=== PATIENT | female | born 1985 | race Caucasian/White ===

== ENCOUNTER 2016-08-24 14:12 | Emergency (ER) | payer BC ==
[~2016-08-24] VITALS: Ht 172.7 cm; Wt 63.0 kg
[~2016-08-24 14:12] MED LIST: BUPR75TA3 PO; CIME300L4 PO; PRED5TAB48 PO; RANI150T12 PO
[2016-08-24 15:08] VITALS: BP 120/61
== END 2016-08-24 15:10 | disposition home or self-care (01) ==
LOC: ER 14:14
DX: M54.6 Pain in thoracic spine (principal); K21.9 Gastro-esophageal reflux disease without esophagitis; F17.200 Nicotine dependence, unspecified, uncomplicated; Z87.440 Personal history of urinary (tract) infections
CPT/HCPCS: A4606; Z7610

== ENCOUNTER 2017-07-06 12:14 | Emergency (ER) | payer BC, OTHER ==
[~2017-07-06] VITALS: Ht 172.7 cm; Wt 62.1 kg
--- NOTE | 2017-07-06 12:22 | NUR ---
PATIENT TO ED DT BURNING SENSATION AND PINKISH COLORED URINE SINCE YESTERDAY. PER PATIENT SHE WAS ON MACROBID AND FINISHED WHOLE COURSE HOWEVER SHE DIDNT SEE ANY IMPROVEMENT, PATIENT IS AFEBRILE. SKIN IS WARM TO TOUCH AND NON DIAPAHORETIC. VSS. PENDING MD HUFF
--- NOTE | 2017-07-06 12:27 | NUR ---
GRACIELA RILEY AT BEDSIDE
[2017-07-06 12:35] LABS: APPEARANCE,URINE CLEAR (CLEAR); BILIRUBIN,URINE NEGATIVE (NEGATIVE); BLOOD, URINE NEGATIVE Ery/uL (NEGATIVE); COLOR,URINE YELLOW (YELLOW); KETONES,URINE NEGATIVE (NEGATIVE); LEUKOCYTE ESTERASE ,URINE NEGATIVE (NEGATIVE); NITRITE, URINE NEGATIVE (NEGATIVE); PROTEIN,URINE NEGATIVE (NEGATIVE); UGLUCOSE NEGATIVE (NEGATIVE); UROBILINOGEN,URINE 0.2 EU/dL (0.2)
[2017-07-06 13:18] VITALS: BP 102/60
--- NOTE | 2017-07-06 13:18 | NUR ---
Patient discharged to home in stable condition. Written and verbal after care instructions given. Patient verbalizes understanding of instruction.
== END 2017-07-06 13:23 | disposition home or self-care (01) ==
LOC: ER 12:18
DX: K59.00 Constipation, unspecified (principal); J30.89 Other allergic rhinitis; H10.13 Acute atopic conjunctivitis, bilateral; R30.0 Dysuria
CPT/HCPCS: 81001; 84703; 87086; 99284; A4606; Z7610; 81000-TC

== ENCOUNTER → 2018-02-11 | Emergency (ER) | payer OTHER ==
[~2018-02-11] VITALS: Ht 165.1 cm; Wt 54.4 kg
[~2018-02-11] MED LIST changes: -RANI150T12 PO; +RANI150T43 PO
[2018-02-11 15:25] VITALS: BP 113/77
--- NOTE | 2018-02-11 16:11 | NUR ---
Patient discharged to home in stable condition. Written and verbal after care instructions given. Patient verbalizes understanding of instruction.
== END | disposition home or self-care (01) ==
LOC: ER 14:52
DX: L30.9 Dermatitis, unspecified (principal); K21.9 Gastro-esophageal reflux disease without esophagitis; M79.7 Fibromyalgia; F10.10 Alcohol abuse, uncomplicated; Y90.9 Presence of alcohol in blood, level not specified; Z90.89 Acquired absence of other organs
CPT/HCPCS: 99283; A4606; Z7610